=== PATIENT | female | born 1940 | race Caucasian/White ===

== ENCOUNTER 2019-03-25 11:00 | Emergency (ER) | payer MEDICARE ==
[2019-03-25 11:27] VITALS: BP 129/84
--- NOTE | 2019-03-25 12:14 | UC ---
Throat Pain/Nasal Ulises HPI - HPI Summary HPI Summary: was treated for sinus infection 3 weeks ago and seemed to be getting better until 3-4 days ago when nasal congestion and ST worsened. now coughs up thick yellow phlegm from throat took DayQuil with mod relief symps for short period of time - History of Current Complaint Chief Complaint: UCGeneralIllness Stated Complaint: COUGH Time Seen by Provider: 03/25/19 12:02 Hx Obtained From: Patient Onset/Duration: Gradual Onset Severity: Mild Pain Intensity: 1 Cough: Productive Associated Signs & Symptoms: Positive: Sinus Discomfort, Nasal Discharge. Negative: Fever - Allergies/Home Medications Allergies/Adverse Reactions: Allergies Allergy/AdvReac Type Severity Reaction Status Date / Time No Known Allergies Allergy Verified 03/25/19 11:17 Home Medications: Home Medications Acetaminophen [Acetaminophen Extra Strength] 500 mg PO ONCE 03/25/19 [History Confirmed 03/25/19] Atorvastatin* [Lipitor 10 MG*] 10 mg PO DAILY 03/25/19 [History Confirmed ] Gabapentin CAP(*) [Neurontin 300 CAP(*)] 600 mg PO TID 03/25/19 [History Confirmed 03/25/19] Levothyroxine TAB* [Synthroid 88 MCG TAB*] 88 mcg PO DAILY 03/25/19 [History Confirmed 03/25/19] Lisinopril TAB* [Prinivil TAB 5 MG*] 5 mg PO DAILY 03/25/19 [History Confirmed 03/25/19] metFORMIN* [Glucophage 1000 MG TAB *] 1,000 mg PO BID 03/25/19 [History Confirmed 03/25/19] PMH/Surg Hx/FS Hx/Imm Hx Previously Healthy: Yes Endocrine History: Diabetes, Thyroid Disease, Dyslipidemia Cardiovascular History: Hypertension - Surgical History Surgical History: Yes Surgery Procedure, Year, and Place: lumbar surgery x2. complete L hip - Family History Known Family History: Positive: Non-Contributory - Social History Occupation: Retired Lives: With Family Alcohol Use: None Substance Use Type: None Smoking Status (MU): Never Smoked Tobacco Review of Systems All Other Systems Reviewed And Are Negative: Yes Constitutional: Positive: Fatigue. Negative: Fever Skin: Positive: Negative Eyes: Positive: Negative ENT: Positive: Sinus Congestion, Sinus Pain/Tenderness. Negative: Sore Throat - resolved over past 2-3 days Respiratory: Positive: Cough. Negative: Shortness Of Breath Cardiovascular: Positive: Negative Gastrointestinal: Positive: Negative. Negative: Diarrhea, Nausea Neurological: Positive: Negative. Negative: Headache Is Patient Immunocompromised?: No Physical Exam Triage Information Reviewed: Yes Appearance: Well-Appearing, No Pain Distress, Well-Nourished Vital Signs: Initial Vital Signs Temp 98.1 F 03/25/19 11:22 Pulse 75 03/25/19 11:22 Resp 16 03/25/19 11:22 BP 129/84 03/25/19 11:22 Pulse Ox 98 03/25/19 11:22 Vital Signs Reviewed: Yes Eye Exam: Normal Eyes: Positive: Conjunctiva Clear ENT: Positive: Pharynx normal - except thick PND, Nasal congestion, Sinus tenderness Neck exam: Normal Neck: Positive: Supple, Nontender, No Lymphadenopathy Respiratory Exam: Normal Respiratory: Positive: Lungs clear Cardiovascular Exam: Normal Cardiovascular: Positive: RRR Neurological Exam: Normal Psychological Exam: Normal Skin Exam: Normal Throat Pain/Nasal Course/Dx - Differential Dx/Diagnosis Differential Diagnosis/HQI/PQRI: Influenza, Pharyngitis, Sinusitis, URI Provider Diagnosis: Sinusitis Discharge ED - Sign-Out/Discharge Documenting (check all that apply): Patient Departure All imaging exams completed and their final reports reviewed: No Studies - Discharge Plan Condition: Good Disposition: HOME Prescriptions: Azithromycin TAB* [Zithromax TAB (Z-MAURICIO) 250 mg #6 tabs] 2 tab PO .TODAY, THEN 1 DAILY #1 [email or web address] Patient Education Materials: Sinusitis (ED) Referrals: Maurilio Figueroa MD [Primary Care Provider] - 2 Days (if no better) Additional Instructions: drink plenty of fluids and rest start antibiotic (zithromax) and take as prescribed return if your symptoms worsen - Billing Disposition and Condition Condition: GOOD Disposition: Home - Attestation Statements Provider Attestation: I was available for consult. This patient was seen by the IVETH. The patient was not presented to, seen by, or examined by me. -Rocky
== END 2019-03-25 12:20 | disposition home or self-care (01) ==
LOC: UCEAST 11:00
DX: J32.9 Chronic sinusitis, unspecified (principal); R53.83 Other fatigue; E11.9 Type 2 diabetes mellitus without complications; I10 Essential (primary) hypertension; E78.5 Hyperlipidemia, unspecified; E07.89 Other specified disorders of thyroid; Z79.84 Long term (current) use of oral hypoglycemic drugs; Z79.899 Other long term (current) drug therapy; Z79.890 Hormone replacement therapy
CPT/HCPCS: 99202; G0463